=== PATIENT | female | born 1940 | race Caucasian/White ===

== ENCOUNTER 2017-06-14 11:03 | Emergency (ER) | payer MEDICARE, OTHER ==
[~2017-06-14] VITALS: Wt 81.1 kg
[2017-06-14] MEDS ORDERED: SODIUM CHLORIDE 0.9% 1L BAG IV* STA (12:15)
[2017-06-14] MEDS ORDERED: IBUPROFEN 600 MG TAB PO ONE (12:30)
--- NOTE | 2017-06-14 12:58 | RADRPT ---
PROCEDURE: XR Chest. CLINICAL INDICATION: Possible sepsis. TECHNIQUE: Single frontal view of the chest was obtained. COMPARISON: None FINDINGS: The cardiomediastinal silhouette is normal in size. There are aortic calcifications. There is an asymmetric right basilar opacity. No pleural effusion is seen. No definite pneumothorax. No acute osseous abnormality. IMPRESSION: Asymmetric right basilar opacity which could represent atelectasis versus pneumonia. RPTAT: AAEE Elias Lamb Physician Date Time Electronically viewed and signed by Elias Lamb Physician on 06/14/2017 12:58 PH/
[2017-06-14 13:22] LABS: BASOPHILS % 0.2 % (0.0-2.0); HEMATOCRIT 38.9 % (37.0-47.0); HEMOGLOBIN 12.9 g/dl (12.0-16.0); LYMPHOCYTES # 0.8 10^3/ul (0.8-2.9); LYMPHOCYTES % 9.3 % (15.0-51.0); MEAN CORPUSCULAR HEMOGLOBIN 31.8 pg (29.0-33.0); MEAN CORPUSCULAR HGB CONC 33.2 g/dl (32.0-37.0); MEAN CORPUSCULAR VOLUME 95.8 fl (82.0-101.0); MONOCYTE # 0.9 10^3/ul (0.3-0.9); MONOCYTES % 10.6 % (0.0-11.0); NEUTROPHIL # 6.6 10^3/ul (1.6-7.5); NEUTROPHILS % 79.5 % (39.0-77.0); PLATELET COUNT 208 10^3/UL (140-415); RED BLOOD COUNT 4.06 10^6/ul (4.20-5.40); RED CELL DISTRIBUTION WIDTH 12.5 % (11.5-14.5); WHITE BLOOD COUNT 8.3 10^3/ul (4.8-10.8)
[2017-06-14 13:24] LABS: ADD UMIC YES; UR ASCORBIC ACID NEGATIVE (NEGATIVE); UR BACTERIA FEW /HPF (NONE SEEN); UR BILIRUBIN (Dip) NEGATIVE (NEGATIVE); UR BLOOD (Dip) 1+ mg/dL (NEGATIVE); UR CLARITY CLEAR (CLEAR); UR COLOR YELLOW (YELLOW); UR GLUCOSE (Dip) NEGATIVE (NEGATIVE); UR KETONES (Dip) TRACE mg/dL (NEGATIVE); UR LEUKOCYTE ESTERASE (Dip) 2+ Leu/ul (NEGATIVE); UR MUCUS FEW /HPF (NONE SEEN); UR NITRITE (Dip) NEGATIVE (NEGATIVE); UR NONSQUAMOUS EPITHELIAL CELL 1 /HPF (NONE SEEN); UR RBC 1 /HPF (0-5); UR SPECIFIC GRAVITY (Dip) 1.017 (1.003-1.030); UR SQUAMOUS EPITHELIAL CELL FEW /HPF (FEW); UR TOTAL PROTEIN (Dip) 1+ mg/dl (NEGATIVE); UR UROBILINOGEN (Dip) NEGATIVE (NEGATIVE)
--- NOTE | 2017-06-14 13:24 | ERD ---
ER Documentation Chief Complaint Chief Complaint FEVER, BODYACHES, HEADACHE HPI 76-year-old woman complains of body aches, chills, fever, cough 3 days. She denies abdominal pain, no vomiting or diarrhea, no rash, no chest pain or shortness of breath, no weight loss. Patient denies neck pain or stiffness. Patient denies calf or leg swelling. ROS All systems reviewed and are negative except as per history of present illness. Medications Home Meds Active Scripts Ibuprofen* (Ibuprofen*) 600 Mg Tablet, 600 MG PO Q8 for FEVER, #30 TAB Prov:PRASANNA SEE MD 06/14/17 Levofloxacin* (Levaquin*) 500 Mg Tablet, 500 MG PO DAILY for 7 Days, TAB Prov:PRASANNA SEE MD 06/14/17 Reported Medications Apremilast (Otezla) 30 Mg Tablet, 30 MG PO DAILY, #60 06/14/17 Escitalopram Oxalate* (Lexapro*) 20 Mg Tablet, 20 MG PO DAILY, #30 TAB 06/14/17 Lisinopril* (Lisinopril*) 20 Mg Tablet, 20 MG PO DAILY, #30 TAB 06/14/17 Atorvastatin Calcium* (Atorvastatin Calcium*) 20 Mg Tablet, 20 MG PO QHS, #30 TAB 06/14/17 Allergies Allergies: Coded Allergies: No Known Allergy (Unverified , 06/14/17) PMhx/Soc Hypertension, dyslipidemia FmHx Family History: No diabetes Physical Exam Vitals Vital Signs Date Time Temp Pulse Resp B/P Pulse Ox O2 Delivery O2 Flow Rate FiO2 06/14/17 15:21 99.0 73 18 112/53 97 Room Air 06/14/17 13:17 100.0 72 18 131/58 96 Room Air 06/14/17 11:08 102.9 99 17 134/61 95 Physical Exam GENERAL: Well-developed, well-nourished, well-hydrated, febrile HEENT: Moist mucous membranes, pink conjunctiva, no cervical spine tenderness or step-off deformities, no goiter, no jaundice or icterus, extraocular movements intact without pain. No submandibular induration, and no pharyngeal erythema NEURO: Alert and oriented 3, cranial nerves II through XII intact bilaterally, pupils equal round reactive to light, no focal deficits or facial asymmetry, sensation intact distally Strength 5/5 in upper and lower extremities bilaterally CARDIAC: Regular rate and rhythm, no murmurs rubs or gallops LUNGS: Clear bilaterally no wheezing crackles or stridor ABDOMEN: Soft nontender, no guarding, no rigidity, no rebound, no psoas sign no obturator sign. Normoactive bowel sounds SKIN: Warm and dry to touch, no abrasions, contusions, or hematomas, no lacerations, no ecchymosis, no target lesions, and without ulcers EXTREMITIES: No clubbing cyanosis or edema, calves are bilaterally symmetrical, no Homans sign, no popliteal cord sign. Distal pulses equal and bilateral PSYCH: Normal affect without agitation or irritability Result Diagram: 06/14/17 1300 06/14/17 1300 Results 24 hrs Laboratory Tests Test 06/14/17 12:30 06/14/17 13:00 Urine Color YELLOW Urine Clarity CLEAR Urine pH 5.0 Urine Specific [place] 1.017 Urine Ketones TRACEmg/dL Urine Nitrite NEGATIVEmg/dL Urine Bilirubin NEGATIVEmg/dL Urine Urobilinogen NEGATIVEmg/dL Urine Leukocyte Esterase 2+[place]/ul Urine Microscopic RBC 1/HPF Urine Microscopic WBC 3/HPF Urine Squamous Epithelial Cells FEW/HPF Urine Bacteria FEW/HPF Urine Mucus FEW/HPF Urine Hemoglobin 1+mg/dL Urine Glucose NEGATIVEmg/dL Urine Total Protein 1+mg/dl White Blood Count 8.310^3/ul Red Blood Count 4.0610^6/ul Hemoglobin 12.9g/dl Hematocrit 38.9% Mean Corpuscular Volume 95.8fl Mean Corpuscular Hemoglobin 31.8pg Mean Corpuscular Hemoglobin Concent 33.2g/dl Red Cell Distribution Width 12.5% Platelet Count 07580^3/UL Mean Platelet Volume 9.0fl Neutrophils % 79.5% Lymphocytes % 9.3% Monocytes % 10.6% Eosinophils % 0.0% Basophils % 0.2% Nucleated Red Blood Cells % 0.0/100WBC Neutrophils # 6.610^3/ul Lymphocytes # 0.810^3/ul Monocytes # 0.910^3/ul Eosinophils # 0.010^3/ul Basophils # 0.010^3/ul Nucleated Red Blood Cells # 0.010^3/ul Prothrombin Time 13.8Sec Prothrombin Time Ratio 1.1 INR International Normalized Ratio 1.06 Activated Partial Thromboplast Time 28.5Sec Sodium Level 134mmol/L Potassium Level 3.8mmol/L Chloride Level 99mmol/L Carbon Dioxide Level 26mmol/L Anion Gap 13 Blood Urea Nitrogen 15mg/dl Creatinine 0.77mg/dl Glucose Level 116mg/dl Lactic Acid Level 0.9mmol/L Calcium Level 8.9mg/dl Total Bilirubin 0.3mg/dl Direct Bilirubin 0.00mg/dl Indirect Bilirubin 0.3mg/dl Aspartate Amino Transf (AST/SGOT) 24IU/L Alanine Aminotransferase (ALT/SGPT) 29IU/L Alkaline Phosphatase 63IU/L Total Protein 6.8g/dl Albumin 3.7g/dl Globulin 3.10g/dl Albumin/Globulin Ratio 1.19 Lipase 85U/L Current Medications Medications (Trade) Dose Ordered Sig/Master Route PRN Reason Start Time Stop Time Status Last Admin Dose Admin Sodium Chloride (NS) 2,510 ml BOLUS OVER 2 HOURS STAT IV* 06/14/17 12:15 06/14/17 12:17 DC 06/14/17 13:34 Ibuprofen 600 mg 600 mg ONCE ONCE PO 06/14/17 12:30 06/14/17 12:31 DC 06/14/17 13:33 Ceftriaxone Sodium 50 ml @ 100 mls/hr ONCE ONCE IVPB 06/14/17 13:30 06/14/17 13:59 DC 06/14/17 14:01 Azithromycin (Zithromax 500mg/ NS (Pmx)) 250 ml @ 250 mls/hr ONCE ONCE IVPB 06/14/17 13:30 06/14/17 14:29 DC 06/14/17 14:15 Procedures/MDM IV line was established patient was placed on front desk monitor rhythm strip revealed a sinus rhythm at about 70 bpm with upright P and T waves. Patient was febrile, blood and urine cultures have been ordered results are pending I will follow-up. I do not suspect sepsis EKG performed, read by me: 73 bpm, normal sinus rhythm, normal axis, no acute ST segment changes, narrow QRS complex, with good R-wave progression in precordial leads. I administered 1L of normal saline IV, ibuprofen 600 mg p.o., ceftriaxone 1 g IV , and azithromycin 500 mg IV. One view chest x-ray performed, read by me reveals a right lower lobe infiltrate , no pneumothorax, no air under the diaphragm. CBC and electrolytes are normal, liver function tests were normal, lactic acid level was low. Urine analysis was equivocal although patient has no genitourinary symptoms. I do not suspect sepsis. Patient feels much better and she can be managed as an outpatient, curb 65 score is 1 based on age, and she prefers outpatient management. Vital signs were repeated by me and remained normal. Differential diagnoses considered, included but not limited to acute coronary syndrome, pulmonary embolism, aortic dissection, abdominal aortic aneurysm, sepsis, stroke, meningitis, encephalitis, pneumonia, appendicitis, cholecystitis , bowel obstruction, pyelonephritis, nephrolithiasis, cystitis, as well as metabolic, hematologic, and electrolyte abnormalities. As well as abscess, cellulitis, fractures, and dislocations. Patient feels much better at this time, and vital signs are normal, symptoms have improved. I did give strict instructions to return to the ED if symptoms continue or worsen, patient will otherwise follow-up with primary care physician. Patient understood instructions and agreed to plan. Disclaimer: Inadvertent spelling and grammatical errors are likely due to EHR/ dictation software use and do not reflect on the overall quality of patient care. Also, please note that the electronic time recorded on this note does not necessarily reflect the actual time of the patient encounter. Departure Diagnosis: Primary Impression: Pneumonia Pneumonia type: due to unspecified organism Laterality: right Lung location : lower lobe of lung Qualified Code: J18.1 - Pneumonia of right lower lobe due to infectious organism Condition: PRASANNA Walker MD Jun 14, 2017 13:24
[2017-06-14] MEDS ORDERED: CEFTRIAXONE 1 GM/50 ML (PMX) 50 ML IVPB ONE (13:30)
[2017-06-14] MEDS ORDERED: AZITHROMYCIN 500MG/NS (PMX) 250 ML IVPB ONE (13:30)
[2017-06-14 13:38] LABS: INR 1.06; PROTIME 13.8 Sec (12.2-14.2); PT RATIO 1.1
[2017-06-14 13:39] LABS: PARTIAL THROMBOPLASTIN TIME 28.5 Sec (25.0-35.0)
[2017-06-14 13:40] LABS: ALBUMIN 3.7 g/dl (3.3-4.9); ALBUMIN/GLOBULIN RATIO 1.19; BILIRUBIN,INDIRECT 0.3 mg/dl (0-1.1); BILIRUBIN,TOTAL 0.3 mg/dl (0.2-1.3); CALCIUM 8.9 mg/dl (8.4-10.2); CREATININE 0.77 mg/dl (0.44-1.00); POTASSIUM 3.8 mmol/L (3.5-5.1); TOTAL PROTEIN 6.8 g/dl (6.1-8.1)
[2017-06-14] MEDS ORDERED: IBUP-1542 PO (13:43)
[2017-06-14] MEDS ORDERED: LEVO500T72 PO (13:43)
[2017-06-14] MEDS ORDERED: ATOR20TA38 PO (14:26)
[2017-06-14] MEDS ORDERED: LISI20TA11 PO (14:27)
[2017-06-14] MEDS ORDERED: ESCI20TA PO (14:27)
[2017-06-14] MEDS ORDERED: APRE30TA2 PO (14:29)
[2017-06-14 15:21] VITALS: BP 112/53; PULSE 73; RESP 18; TEMP 99
== END 2017-06-14 16:03 | disposition home or self-care (01) ==
LOC: E/R 11:03
DX: J18.1 Lobar pneumonia, unspecified organism (principal); I10 Essential (primary) hypertension; R07.9 Chest pain, unspecified
CPT/HCPCS: 71010; 80053; 81001; 83605; 83690; 85025; 85610; 85730; 87040; 87086; 87400; J0456; J0696; J7030; 93005; 96365; 96375